=== PATIENT | female | born 1970 | race Caucasian/White ===

== ENCOUNTER 2018-04-05 10:58 | Day surgery (SDC) | payer OTHER, BC ==
[~2018-04-05] VITALS: Ht 167.6 cm; Wt 88.2 kg
[2018-04-05] MEDS ORDERED: ETOD400 PO (11:52)
[2018-04-05] MEDS ORDERED: LEVSOD100 PO (11:52)
[2018-04-05] MEDS ORDERED: LIOT5 PO (11:53)
[2018-04-05] MEDS ORDERED: ZOLP5 PO (11:54)
[2018-04-05] MEDS ORDERED: ALPR.25 PO (11:58)
[2018-04-05] MEDS ORDERED: PRAZ1 PO (11:58)
[2018-04-05] MEDS ORDERED: AMLO5 PO (11:59)
[2018-04-05] MEDS ORDERED: LABE100 PO (11:59)
[2018-04-05] MEDS ORDERED: METTREX2.5 PO (12:00)
[2018-04-05] MEDS ORDERED: ADAL40PEN (12:00)
== END 2018-04-05 16:13 | disposition home or self-care (01) ==
LOC: ORSCSDS 10:58
PROVIDERS: Podiatrist Foot & Ankle Surgery
PROC: 0QSM04Z Reposition Left Tarsal with Internal Fixation Device, Open Approach (ICD-10-PCS; principal; 2018-04-05 12:30)
DX: S92.012A Displaced fracture of body of left calcaneus, initial encounter for closed fracture (principal); W11.XXXA Fall on and from ladder, initial encounter; I10 Essential (primary) hypertension; E03.9 Hypothyroidism, unspecified; Z79.899 Other long term (current) drug therapy
CPT/HCPCS: C1713; J0171; J0690; J1100; J2250; J2405; J3010

== ENCOUNTER → 2022-10-27 | Outpatient (CLI) | payer BC ==
[~2022-10-27] MED LIST: ADAL40PEN; ALPR.25 PO; AMLO5 PO; ETOD400 PO; LABE100 PO; LEVSOD100 PO; LIOT5 PO; METTREX2.5 PO; PRAZ1 PO; ZOLP5 PO
== END | disposition home or self-care (01) ==
LOC: LAB SHORT 10:47 → LAB 10:47
DX: J20.9 Acute bronchitis, unspecified (principal)
CPT/HCPCS: 87077; 87081; 87185